=== PATIENT | female | born 1995 | race Caucasian/White ===

== ENCOUNTER 2024-09-10 11:49 | Emergency (ER) | payer SELFPAY ==
[2024-09-10 12:05] VITALS: BP 114/75; PULSE 110; RESP 16; TEMP 36.3; O2SAT 100
--- NOTE | 2024-09-10 12:52 | ED_ITS ---
HPI - General Adult 2 General: Chief complaint: General Medical Stated complaint: abn labs Time Seen by Provider: 09/10/24 12:47 History of Present Illness: 29-year-old female with a history of typ e 1 diabetes who presents the emergency room with concerns for DKA. She has had a viral gastroenteritis type syndrome for the last few days with some diarrhea and some nausea. No dysuria. No fevers. No abdominal pain. No vomiting. She has had some mild nausea. She had ketones in her urine at home. Was concern for DKA. Related Data Allergies Allergy/AdvReac Type Severity Reaction Status Date / Time Penicillins Allergy Unknown Verified 09/10/24 12:12 Sulfa (Sulfonamide Allergy Unknown Verified 09/10/24 12:12 Antibiotics) Review of Systems 2 Narrative: Constitutional symptoms: Negative except as documented in HPI. Skin symptoms: Negative except as documented in HPI. Eye symptoms: Negative except as documented in HPI. ENMT symptoms: Negative except as documented in HPI. Respiratory symptoms: Negative except as documented in HPI. Cardiovascular symptoms: Negative except as documented in HPI. Gastrointestinal symptoms: Negative except as documented in HPI. Genitourinary symptoms: Negative except as documented in HPI. Musculoskeletal symptoms: Negative except as documented in HPI. Neurologic symptoms: Negative except as documented in HPI. Psychiatric symptoms: Negative except as documented in HPI. Endocrine symptoms: Negative except as documented in HPI. Physical Exam 2 Narrative: EXAM NARRATIVE: General: Alert, no acute distress. Skin: Warm, dry. Head: Normocephalic, atraumatic. Neck: Supple, trachea midline. Eye: Extraocular movements are intact. Ears, nose, mouth and throat: Tacky oral mucosa Cardiovascular: Regular, Normal peripheral perfusion. Respiratory: Lungs are clear to auscultation, respirations are non-labored, breath sounds are equal, Symmetrical chest wall expansion. Gastrointestinal: Soft, Nontender, Non distended Musculoskeletal: Normal ROM, no deformity. Neurological: Alert and oriented, No focal neurological deficit observed. Psychiatric: Cooperative, appropriate mood & affect. Course 2 Vital Signs: Vital signs: Vital Signs Temperature 97.4 F L 09/10/24 12:05 Pulse Rate 87 09/10/24 13:15 Respiratory Rate 18 09/10/24 13:15 Blood Pressure 114/75 09/10/24 12:05 Pulse Oximetry 100 09/10/24 13:15 Oxygen Delivery Me thod Room Air 09/10/24 13:15 MDM - General Adult Medical Decision Making Medical decision making: Differential diagnosis for the patient with hyperglycemia would include but not be limited to and would be based on the above HPI review of systems and physical exam: DKA. Dehydration. Renal failure. Concern for electrolyte abnormalities. Concern for underlying infection that might result in hyperglycemia. Medical non-compliance. Orders placed to evaluate differential diagnosis of the patient with hyperglycemia are based on the above differential, HPI and physical exam. Lab Review: Laboratory results were reviewed and interpreted by myself the emergency room physician. No leukocytosis. No anemia. No renal failure. Glucose is slightly elevated at 234. Bicarb is 20. No ketones in her serum or in her urine. She does have some glucose in her urine. No signs of infection. Hyperglycemia likely secondary to viral gastroenteritis and dehydration. I reviewed the patient's medical record. Reexamination: Patient remained stable. No increased work of breathing. No altered mental status. No focal motor deficits. Assessment and plan: Hyperglycemia Dehydration Viral gastroenteritis Type 1 diabetes mellitus ? Normal saline bolus. No signs of DKA. - Discharged home - Discussed plan with patient. Answered any questions. - Evaluation and treatment of this problem were appropriate in the emergency setting. Lab Data 09/10/24 13:02 09/10/24 13:02 Laboratory Results WBC 8.20 10^3/uL (3.29-11.43) 09/10/24 13:02 RBC 4.54 10^6/uL (3.85-5.65) 09/10/24 13:02 Hgb 14.00 g/dL (11.27-16.99) 09/10/24 13:02 Hct 43.5 % (36-47) 09/10/24 13:02 MCV 95.8 fl (85-98) 09/10/24 13:02 MCH 30.8 pg (27-33) 09/10/24 13:02 MCHC 32.2 g/dL (30-55) 09/10/24 13:02 RDW 13.1 % (12.1-15.1) 09/10/24 13:02 Plt Count 256 10^3/cmm (157-399) 09/10/24 13:02 MPV 9.6 fL (7.4-10.4) 09/10/24 13:02 Neut % (Auto) 72.4 % 09/10/24 13:02 Lymph % (Auto) 19.4 % 09/10/24 13:02 [place] % (Auto) 3.9 % 09/10/24 13:02 Eos % (Auto) 3.2 % 09/10/24 13:02 Baso % (Auto) 0.7 % 09/10/24 13:02 Neut # (Auto) 5.94 10^3/uL (1.8-7.7) 09/10/24 13:02 Lymph # (Auto) 1.6 10^3/uL (0.8-4.8) 09/10/24 13:02 [place] # (Auto) 0.3 10^3/uL (0.2-0.9) 09/10/24 13:02 Eos # (Auto) 0.3 10^3/uL (0.0-0.8) 09/10/24 13:02 Baso # (Auto) 0.1 10^3/uL (0.0-0.1) 09/10/24 13:02 Nucleated RBC % (auto) 0 % 09/10/24 13:02 Nucleated RBCs # 0.0 /100WBC 09/10/24 13:02 Sodium 137 mmol/L (136-145) 09/10/24 13:02 Potassium 3.9 mmol/L (3.5-5.1) 09/10/24 13:02 Chloride 103 mmol/L (98-107) 09/10/24 13:02 Carbon Dioxide 20 mmol/L (22-29) L 09/10/24 13:02 Anion Gap 17.9 (5-19) 09/10/24 13:02 BUN 12 mg/dL (6-20) 09/10/24 13:02 Creatinine 0.8 mg/dL (0.5-0.9) 09/10/24 13:02 GFR Calculation 84.2 mL/min (90-130) L 09/10/24 13:02 Glucose 234 mg/dL (65-115) H 09/10/24 13:02 Calculated Osmolality 291 mOsm/kg (285-295) 09/10/24 13:02 Lactic Acid 1.2 mmol/L (0.5-2.2) 09/10/24 13:02 Calcium 8.9 mg/dL (8.5-10.5) 09/10/24 13:02 Total Bilirubin 0.6 mg/dL (0.15-1.2) 09/10/24 13:02 AST 13 U/L (0-32) 09/10/24 13:02 ALT 12 U/L (0-33) 09/10/24 13:02 Alkaline Phosphatase 75 U/L (35-105) 09/10/24 13:02 Total Protein 7.9 g/dL (6.6-8.7) 09/10/24 13:02 Albumin 4.4 g/dL (3.5-5.2) 09/10/24 13:02 Globulin 3.5 g/dL (1.3-4.6) 09/10/24 13:02 Urine Color Yellow (Yellow) 09/10/24 13:02 Urine Appearance Clear (CLEAR) 09/10/24 13:02 Urine pH 5.5 (5-7) 09/10/24 13:02 Ur Specific [place] 1.007 (1.005-1.030) 09/10/24 13:02 Urine Protein Negative (Negative) 09/10/24 13:02 Urine Glucose (UA) 2+ (Normal) H 09/10/24 13:02 Urine Ketones Negative (Negative) 09/10/24 13:02 Urine Blood Negative (Negative) 09/10/24 13:02 Urine Nitrate Negative (Negative) 09/10/24 13:02 Urine Bilirubin Negative (Negative) 09/10/24 13:02 Urine Urobilinogen 0.2 mg/dL (Negative) 09/10/24 13:02 Ur Leukocyte Esterase Negative (Negative) 09/10/24 13:02 Urine RBC 0-2 /hpf (0-2) 09/10/24 13:02 Urine WBC 0-5 /hpf (0-5) 09/10/24 13:02 Ur Squamous Epith Cells 0-5 /hpf (0-5) 09/10/24 13:02 Amorphous Sediment Not Reportable 09/10/24 13:02 Urine Bacteria None seen /hpf (NONE) 09/10/24 13:02 Hyaline Casts 2.87 /lpf 09/10/24 13:02 Serum Ketones Negative (Negative) 09/10/24 13:02 No radiology studies performed this visit Discharge Plan Discharge Patient Disposition: Home Clinical Impression: Hyperglycemia, Dehydration, Type I diabetes mellitus, Viral gastroenteritis Condition: Stable Discharge Orders: Discharge ED (Routine); Ordered 09/10/24 Ordered By: Jennifer Gray Discharge Diet: Advance as tolerated Discharge Activity: Increase activity as tolerated Patient Instructions: Diabetic Hyperglycemia (ED), Opioid Safety, Pain Management Activity Restrictions/Additional Instructions: Thank you for choosing [facility] for your healthcare needs today. You have been screened and evaluated and felt safe for discharge. Health conditions do change or evolve sometimes and as such it is important that you follow up with your Primary Doctor to be re checked, 3-5 days is a general good time frame for follow up. You are always welcome to return to the ED for re assessment if your symptoms are worsening or you have new concerns Print Language: Gambian Coding Level of Care Code ED [employer] Consultant for Ilay Albrecht
[2024-09-10] MEDS: sodium chloride 0.9% 1,000 ML 999 ML IV (13:04)
[2024-09-10 13:09] LABS: Basophils # 0.1 10^3/uL (0.0-0.1); Basophils % 0.7 %; Eosinophils # 0.3 10^3/uL (0.0-0.8); Eosinophils % 3.2 %; Hematocrit 43.5 % (36-47); Lymphocytes # 1.6 10^3/uL (0.8-4.8); Lymphocytes % 19.4 %; Mean Corpuscular HGB Conc 32.2 g/dL (30-55); Mean Corpuscular Hemoglobin 30.8 pg (27-33); Mean Corpuscular Volume 95.8 fl (85-98); Mean Platelet Volume 9.6 fL (7.4-10.4); Monocytes # 0.3 10^3/uL (0.2-0.9); Monocytes % 3.9 %; Neutrophils # 5.94 10^3/uL (1.8-7.7); Neutrophils % 72.4 %; Nucleated Red Blood Cells % 0 %; Platelet Count 256 10^3/cmm (157-399); Red Blood Count 4.54 10^6/uL (3.85-5.65); Red Cell Distribution Width 13.1 % (12.1-15.1)
[2024-09-10 13:12] LABS: Bilirubin Urine Negative (Negative); Blood Urine Negative (Negative); Glucose Urine UA 2+ (Normal); Ketones Urine Negative (Negative); Leukocyte Esterase Urine Negative (Negative); Nitrate Urine Negative (Negative); Protein Urine Negative (Negative); Specific Gravity, Urine 1.007 (1.005-1.030); Urine Appearance Clear (CLEAR); Urine Color Yellow (Yellow); Urobilinogen Urine 0.2 mg/dL (Negative); pH Urine 5.5 (5-7)
[2024-09-10 13:14] LABS: Bacteria Urine None Seen /hpf; Hyaline Casts Urine 2.87 /lpf; RBC Urine 0-2 /hpf (0-2); Squamous Epithelial Cell Urine 0-5 /hpf (0-5); WBC Urine 0-5 /hpf (0-5)
[2024-09-10 13:15] VITALS: PULSE 87; RESP 18; O2SAT 100
[2024-09-10 13:19] LABS: Ketone (Acetest) Serum Negative (Negative)
[2024-09-10 13:27] LABS: Alanine Aminotransferase 12 U/L (0-33); Albumin Level 4.4 g/dL (3.5-5.2); Alkaline Phosphatase 75 U/L (35-105); Anion Gap 17.9 (5-19); Aspartate Amino Transferase 13 U/L (0-32); Blood Urea Nitrogen 12 mg/dL (6-20); Calcium 8.9 mg/dL (8.5-10.5); Carbon Dioxide 20 mmol/L (22-29); Chloride 103 mmol/L (98-107); Globulin 3.5 g/dL (1.3-4.6); Glomerular Filtration Rate 84.2 mL/min (90-130); Glucose 234 mg/dL (65-115); Osmolality Calculated 291 mOsm/kg (285-295); Potassium 3.9 mmol/L (3.5-5.1); Sodium 137 mmol/L (136-145); Total Bilirubin 0.6 mg/dL (0.15-1.2); Total Protein 7.9 g/dL (6.6-8.7)
[2024-09-10 13:28] LABS: Lactic Sepsis W/Reflex 1.2 mmol/L (0.5-2.2)
[2024-09-10 13:42] VITALS: BP 113/61; PULSE 84; RESP 18; O2SAT 100
== END 2024-09-10 14:12 | disposition home or self-care (01) ==
PROVIDERS: Emergency Provider Emergency Medicine
DX: E10.65 Type 1 diabetes mellitus with hyperglycemia (principal); E86.0 Dehydration; A08.4 Viral intestinal infection, unspecified; Z88.2 Allergy status to sulfonamides; Z88.0 Allergy status to penicillin
CPT/HCPCS: 36415; 80053; 81001; 82009; 83605; 85025; 96360; 99284; J7030